=== PATIENT | female | born 1960 | race Caucasian/White ===

== ENCOUNTER 2018-04-22 11:02 | Observation (INO) ==
[2018-04-22] MEDS ORDERED: Temazepam 15 MG Capsule PO PRN (16:35)
[2018-04-22] MEDS ORDERED: Acetaminophen 500 MG Tablet PO PRN (16:35)
[2018-04-22] MEDS ORDERED: Dextrose 50% in Water 50 ML Vial IV.PUSH PRN (16:38)
[2018-04-22] MEDS ORDERED: ROSUVASTATIN 20 MG PO SCH (17:15)
--- NOTE | 2018-04-22 18:03 | P.HP ---
History of Present Illness Primary Care Physician: Cuate Encarnacion Chief Complaint: Chest pain History of Present Illness: 57-year-old female with known history of hypertension, hyperlipidemia , diabetes, thyroid goiter who presented to emergency department because of chest pain. Patient indicates that approximately 1 month ago she had similar chest pain which started in the middle part of the chest which she describes as a tightness, that time it did not radiate into her neck, back, shoulder, arm. Did not have any nausea, vomiting, diaphoresis, shortness of breath or dyspnea. Lasted for approximate 5 minutes and resolved on its own. Patient went to her field sales manager in her area A Dr. Dumont and is undergoing outpatient workup at this time, however patient was in class today and she developed chest pain in the middle part of her chest was described as tightness that radiated up into her neck and down her left arm. She denied any nausea or vomiting. She denies any shortness of breath or dyspnea. Patient went to the emergency department for evaluation because the pain did not go away as quickly to the last time lasted for approximately 15 minutes. Patient was given medication in the emergency department with nitroglycerin and the pain did resolve. Patient had workup done emergency department and there is no acute abnormality found. ER physician recommended the patient be observed in the chest pain center for further evaluation and management. - Diagnosis (1) Chest pain Review of Systems All other systems reviewed negative except as stated in HPI Cardiovascular: Reports chest pain PMFSH - History History Provided By: Patient - Medical History Medical History: Medical History (Last Updated 04/22/18 @ 11:24 by Denia Nolen RN) Diabetes High cholesterol Hx of hysterectomy Hypertension Nodular thyroid disease - Surgical History Surgical History: Surgical History (Last Updated 04/22/18 @ 11:24 by Denia Nolen RN) Hx of bilateral mastectomy Hx of tonsillectomy - Family History Family History: Family History (Last Updated 04/22/18 @ 17:10 by BRENNAN Paige) Father History of myocardial infarction History of hypertension Father No problems noted. Mother History of hypertension - Tobacco History Second Hand Smoke Exposure: No Smoking Status: Former smoker Tobacco Type: Cigarettes - Alcohol History How Often Do You Have a Drink Containing Alcohol: Never - Substance Use History Substance History: No History of Abuse Medications and Allergies Active Medications: Active Medications Acetaminophen (Tylenol) 500 mg PO Q4H PRN PRN Reason: HEADACHE Aspirin (Aspirin) 325 mg PO DAILY [facility] Atorvastatin Calcium (Lipitor) 40 mg PO MoWeFr [facility] Dextrose (D50w Vial) 50 ml IV.PUSH UNSCH PRN PRN Reason: PER HYPOGLYCEMIA PROTOCOL Glucagon (Glucagon Inj) 1 mg OTHER PRN PRN PRN Reason: for Hypoglycemia Protocol Insulin Aspart (Novolog Insulin Correctional Sugar Inj) 0 unit SQ ACHS DANIEL; Protocol Losartan Potassium (Cozaar) 100 mg PO DAILY [facility] Nitroglycerin (Nitrostat Sl) 0.4 mg SL Q5M PRN PRN Reason: CHEST PAIN Ondansetron HCl (Zofran Inj) 4 mg IV.PUSH Q6H PRN PRN Reason: NAUSEA Pantoprazole Sodium (Protonix) 20 mg PO DAILY DANIEL Pt Own Med: Exemestane (Aromasin ) 25 Mg Tablet 0 each PO DAILY DANIEL Sodium Chloride (Ns Flush) 2 ml IV.FLUSH BID DANIEL Sodium Chloride (Ns Flush) 2 ml IV.FLUSH PRN PRN PRN Reason: FLUSH AFTER USING IV ACCESS Temazepam (Restoril) 15 mg PO HS PRN PRN Reason: INSOMNIA Allergies Allergy/AdvReac Type Severity Reaction Status Date / Time oxycodone Allergy Mild Vomiting Verified 04/22/18 11:31 Sulfa (Sulfonamide Allergy Mild Vomiting Verified 04/22/18 11:31 Antibiotics) Home Medications Medication Instructions Recorded Confirmed Type Insulin Pump With Novolog 04/22/18 History exemestane 25 mg PO DAILY 04/22/18 04/22/18 History losartan 100 mg PO DAILY 04/22/18 04/22/18 History omeprazole magnesium [Prilosec OTC] 20 mg PO DAILY 04/22/18 04/22/18 History rosuvastatin 20 mg PO DIRECTED 04/22/18 04/22/18 History Exam Narrative: GENERAL: Well-developed, well-nourished, in no acute distress. alert and orientated HEENT: Head is normocephalic without any lesions or masses noted. Facial features are symmetric. Eyes: Pupils equal round reactive to light. Extraocular muscles are intact. Conjunctivae were clear. Oropharyngeal: Pharynx without any erythema edema. Tongue is midline without deviation. Buccal mucosa is moist without any masses or lesions NECK: Supple without any masses. Trachea midline no deviation. No JVD, no bruits are appreciated CARDIAC: Regular rhythm, regular rate. S1/S2 are heard. No murmurs gallops or rubs. LUNGS: Clear to auscultation bilaterally. No wheeze, rhonchi or rales. No use of accessory muscles on inspiration or expiration. ABDOMEN: Soft, nontender. Nondistended. Bowel sounds heard in all 4 quadrants. No organomegaly or masses. Negative rebound, negative guarding EXTREMITIES: No edema, pulses are equal bilaterally. No cyanosis or clubbing NEUROLOGY: Mood and affect appear appropriate. Cranial nerves II through XII grossly intact. Muscle strength 5/5 in upper and lower extremities bilaterally. Deep tendon reflexes are 2+ in upper and lower extremities bilaterally. Results - Labs CBC & Chem 7: 04/23/18 05:55 Labs: Laboratory Results - last 24 hr 04/22/18 17:58 POC Glucose 297 H Caprini VTE Risk Assessment Caprini VTE Risk Assessment: No/Low Risk (score <= 1) Caprini Risk Assessment Model: Point Value = 1 Point Value = 2 Point Value = 3 Point Value = 5 Age 41-60 Minor surgery BMI > 25 kg/m2 Swollen legs Varicose veins or History of unexplained or recurrent spontaneous Oral contraceptives or hormone replacement Sepsis (< 1 month) Serious lung disease, including pneumonia (< 1 month) Abnormal pulmonary function Acute myocardial infarction Congestive heart failure (< 1 month) History of inflammatory bowel disease Medical patient at bed rest Age 61-74 Arthroscopic surgery Major open surgery (> 45 min) Laparoscopic surgery (> 45 min) Malignancy Confined to bed (> 72 hours) Immobilizing plaster cast Central venous access Age >= 75 History of VTE Family history of VTE Factor V Leiden Prothrombin [id number] Lupus anticoagulant Anticardiolipin antibodies Elevated serum homocysteine Heparin-induced thrombocytopenia Other congenital or acquired thrombophilia Stroke (< 1 month) Elective arthroplasty Hip, pelvis, or leg fracture Acute spinal cord injury (< 1 month) Prophylaxis Regimen: Total Risk Factor Score Risk Level Prophylaxis Regimen 0-1 Low Early ambulation 2 Moderate Order ONE of the following: *Sequential Compression Device (SCD) *Heparin 5000 units SQ BID 3-4 Higher Order ONE of the following medications: *Heparin 5000 units SQ TID *Enoxaparin/Lovenox 40 mg SQ daily (WT < 150 kg, CrCl > 30 mL/min) *Enoxaparin/Lovenox 30 mg SQ daily (WT < 150 kg, CrCl > 10-29 mL/min) *Enoxaparin/Lovenox 30 mg SQ BID (WT < 150 kg, CrCl > 30 mL/min) AND/OR *Sequential Compression Device (SCD) 5 or more Highest Order ONE of the following medications: *Heparin 5000 units SQ TID (Preferred with Epidurals) *Enoxaparin/Lovenox 40 mg SQ daily (WT < 150 kg, CrCl > 30 mL/min) *Enoxaparin/Lovenox 30 mg SQ daily (WT < 150 kg, CrCl > 10-29 mL/min) *Enoxaparin/Lovenox 30 mg SQ BID (WT < 150 kg, CrCl > 30 mL/min) AND *Sequential Compression Device (SCD) Assessment and Plan - Assessment (1) Chest pain Code(s): R07.9 - Chest pain, unspecified Status: Inactive - Plan Chest pain -Patient with increased risk factors include age, hypertension, hyperlipidemia, diabetes, menopausal without exogenous hormones -We will continue ruled patient out for acute coronary event with serial cardiac enzymes that are thus far negative -Serial EKG showed normal sinus rhythm without any changes -We will pursue exercise stress test in the morning if patient ruled out for an acute coronary event -Continue aspirin, nitroglycerin as needed -Continue monitor telemetry Hypertension, hyperlipidemia -Home medication be continued Diabetes -Diabetic diet -Patient does have insulin pump, she may use that at this time -Accu-Cheks and sliding scale insulin Thyroid goiter -Check TSH DVT prevention -Accu-Cheks with sliding scale insulin (1) Chest pain Qualifiers: Chest pain type: unspecified Qualified Code(s): R07.9 - Chest pain, unspecified
[2018-04-22 18:14] LABS: Creatine Kinase 51 U/L (26-192)
[2018-04-22] MEDS: Insulin NovoLOG Aspart Correctional Sugar Inj SQ SCH ×2 (18:22→22:04)
[2018-04-22 21:02] LABS: Creatine Kinase 51 U/L (26-192)
[2018-04-23 06:47] LABS: Potassium 3.8 meq/L (3.5-5.1)
[2018-04-23 06:52] LABS: Calcium 8.9 mg/dL (8.5-10.1)
[2018-04-23 06:53] LABS: Carbon Dioxide 27.2 meq/L (21.0-32.0)
[2018-04-23] MEDS: Insulin NovoLOG Aspart Correctional Sugar Inj SQ SCH (08:53)
--- NOTE | 2018-04-23 08:53 | P.PN ---
Subjective Interval history: 57-year-old female seen in follow-up today because of chest pain. I reviewed all the results with the patient with troponin, EKGs. Notified of her normal TSH. Patient still does not think that it is cardiac in nature and she feels that it may be related to her thyroid. She is requesting further laboratory studies to be performed. Notified her that specialized testing will probably take longer than she will be here in the hospital. She does understand that she indicates that she will contact her animal shelter clerk to continue with her outpatient workup. Patient has not had any recurrent chest discomfort. Vital signs are stable, patient remains afebrile. Physical Exam Vital signs: Vital Signs 04/22/18 18:12 04/22/18 20:00 04/22/18 20:43 Temperature 96.3 F L Pulse Rate 92 H 92 H Respiratory Rate 18 Blood Pressure 114/58 L Pulse Oximetry 94 L 94 L 04/23/18 00:00 04/23/18 04:00 04/23/18 08:00 Temperature 96.1 F L 96.2 F L Pulse Rate 83 84 Respiratory Rate 18 18 Blood Pressure 95/52 L 100/60 Pulse Oximetry 93 L 94 L 95 Intake & Output 04/22/18 04/23/18 04/23/18 18:59 06:59 18:59 Intake Total 480 / 480 Output Total Balance 479 / 479 Weight 90.5 kg Intake: Oral 480 / 480 Output: Urine Other: # Voids 3 Date of Last Bowel Movement 04/21/18 04/21/18 Weight On Admission 87.997 kg Narrative: GENERAL: Well-developed, well-nourished, in no acute distress. alert and orientated HEENT: Head is normocephalic without any lesions or masses noted. Facial features are symmetric. Eyes: Extraocular muscles are intact. Conjunctivae were clear. NECK: Supple without any masses. Trachea midline no deviation. No JVD, CARDIAC: Regular rhythm, regular rate. S1/S2 are heard. No murmurs gallops or rubs. LUNGS: Clear to auscultation bilaterally. No wheeze, rhonchi or rales. No use of accessory muscles on inspiration or expiration. ABDOMEN: Soft, nontender. Nondistended. Bowel sounds heard in all 4 quadrants. No organomegaly or masses. Negative rebound, negative guarding EXTREMITIES: No edema, pulses are equal bilaterally. No cyanosis or clubbing NEUROLOGY: Mood and affect appear appropriate. Cranial nerves II through XII grossly intact. Moving all extremities, speech is clear Results - Labs CBC & Chem 7: 04/23/18 05:55 Laboratory Results - last 24 hr 04/22/18 04/22/18 04/22/18 17:25 17:25 17:58 Sodium Potassium Chloride Carbon Dioxide Anion Gap BUN Creatinine Estimated GFR POC Glucose 297 H Random Glucose Calcium Total Creatine Kinase 51 Troponin I Less than 0.02 L TSH 2.050 04/22/18 04/22/18 04/23/18 20:25 22:03 05:55 Sodium 139 Potassium 3.8 Chloride 105 Carbon Dioxide 27.2 Anion Gap 7 BUN 35 H Creatinine 1.00 Estimated GFR 57 L POC Glucose 162 H Random Glucose 200 H Calcium 8.9 Total Creatine Kinase 51 Troponin I Less than 0.02 L TSH 04/23/18 07:49 Sodium Potassium Chloride Carbon Dioxide Anion Gap BUN Creatinine Estimated GFR POC Glucose 195 H Random Glucose Calcium Total Creatine Kinase Troponin I TSH Assessment and Plan - Assessment (1) Chest pain Code(s): R07.9 - Chest pain, unspecified Status: Inactive - Plan Chest pain -Patient with increased risk factors include age, hypertension, hyperlipidemia, diabetes, menopausal without exogenous hormones -Patient ruled out for acute coronary event with serial cardiac enzymes and remained negative -Serial EKGs reviewed by myself shows sinus rhythm without any changes -Exercise stress test was performed and is negative for any ischemia -Continue aspirin, nitroglycerin as needed -Continue monitor telemetry Hypertension, hyperlipidemia -Home medication be continued Diabetes -Diabetic diet -Patient does have insulin pump, she may use that at this time -Accu-Cheks and sliding scale insulin Thyroid goiter -TSH was normal -Patient will continue follow-up with her animal shelter clerk for further evaluation DVT prevention -Accu-Cheks with sliding scale insulin Discharge Planning: Discharge home in stable condition Activity: Ad lety. Diet: Diabetic diet Medication per medication reconciliation Follow-up with primary medical doctor in 1 week (1) Chest pain Qualifiers: Chest pain type: unspecified Qualified Code(s): R07.9 - Chest pain, unspecified
[2018-04-23] MEDS ORDERED: Aspirin 325 MG Tablet PO SCH (09:00)
[2018-04-23] MEDS ORDERED: EXEMESTANE 25 MG PO SCH (09:00)
[2018-04-23] MEDS ORDERED: Pantoprazole Sodium 20 MG DR Tablet PO SCH (09:00)
[2018-04-23 10:10] VITALS: BP 121/81; PULSE 96; RESP 20; TEMP 97.7; O2SAT 96
--- NOTE | 2018-04-23 11:50 | TR ---
Date Performed: 04/23/2018 Time Performed: 09:54:36 DOCTOR: Linda Quiroga DRUG LIST: CLINICAL HISTORY: REASON FOR TEST: Chest pain REASON FOR ENDING: Completed Protocol OBSERVATION: Arrhythmia: None Chest Pain: None CONCLUSION: Patient tolerated MARY protocol with Total Exercise Time=6:[address]=338 % Max HR Achieved=87.0% Maximum YB=581/88, Testing stopped secondary to goals acheived. During peak exercis e, patient was asymptomatic, quick upsloping ST segments, HR and BP appropriate respopnse to exercise , Recovery period, HR and BP returned to baseline COMMENTS: No ischemia
--- NOTE | 2018-04-24 00:19 | ECG ---
Date Performed: 04/22/2018 Time Performed: 20:22:25 PTAGE: 57 years EKG: Sinus rhythm NONSPECIFIC T-WAVE ABNORMALITY BORDERLINE ECG PREVIOUS TRACING : 04/22/2018 17.24 Since the previous tracing, no significant change noted DOCTOR: Fred Deutsch Interpretating Date/Time 04/24/2018 00:18:18
--- NOTE | 2018-04-24 00:23 | ECG ---
Date Performed: 04/22/2018 Time Performed: 17:24:25 PTAGE: 57 years EKG: Sinus rhythm NORMAL ECG Since the PREVIOUS TRACING , no significant change noted DOCTOR: Fred Deutsch Interpretating Date/Time 04/24/2018 00:23:00
== END 2018-04-23 13:49 | disposition home or self-care (01) ==
LOC: PH3 11:02 → PHEDDLT 11:02
PROVIDERS: ADMIT Family Medicine; ATTEND Family Medicine